=== PATIENT | female | born 1935 | race Caucasian/White ===

== ENCOUNTER 2016-11-21 04:55 | Emergency (ER) | payer OTHER ==
[2016-11-21 05:04] VITALS: RESP 16; TEMP 97.3; O2SAT 96
[2016-11-21] MEDS ORDERED: HYDROCOD/APAP 5/325 PREPACK#6 BTL TAKEHOME ONE (05:56)
[2016-11-21] MEDS ORDERED: CEPHALEXIN 500MG PREPACK#4 BTL TAKEHOME ONE (05:56)
--- NOTE | 2016-11-21 05:56 | EDPHY ---
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 Patient states that for the past 2 days she has been having increase swelling and redness over the pad of her left thumb. States that when they did the I and D that they stitched it closed after removal of a portion of the thorn. Denies any fevers or chills. No pain proximal to the distal phalanx. ROS: 10 point Review of Systems is negative except as noted in the HPI. Social History: [No] smoking Physical Exam: General: Awake, alert, no acute distress Left thumb: There is a stitched incision on her left thumb pad with tenderness and fluctuance and surrounding erythema. The erythema does not cross to the proximal phalanx. She has no pain with flexion extension. There is no tenderness or pain along the flexor or extensor tendon sheath. Skin: No rash - Personal History Current Tetanus/Diphtheria Vaccine: Yes Current Tetanus Diphtheria and Acellular Pertussis (TDAP): Yes - Medical/Surgical History Hx Asthma: No Hx Chronic Respiratory Disease: Yes Hx Diabetes: No Hx Cardiac Disease: Yes Hx Renal Disease: No Hx Cirrhosis: No Hx Alcoholism: No Hx HIV/AIDS: No Hx Splenectomy or Spleen Trauma: No Other PMH: HTN, CROHNS, HIGH CHOLESTEROL, COPD, CHRONIC LOW BACK PAIN, IBS, BRADYCARDIA, GOUT, - Social History Smoking Status: Never smoked Constitutional: Initial Vital Signs Temperature (C) 36.3 C 11/21/16 04:57 Heart Rate 80 11/21/16 04:57 Respiratory Rate 16 11/21/16 04:57 Blood Pressure 150/85 H 11/21/16 04:57 O2 Sat (%) 96 11/21/16 04:57 O2 Delivery Mode Room Air Allergies/Adverse Reactions: penicillin G Allergy (Verified 11/21/16 05:04) Home Medications: Medication Instructions Recorded Allopurinol [Allopurinol 300 MG 300 mg PO DAILY 11/21/16 (RX)] Amlodipine Besylate [Norvasc] 5 mg PO 11/21/16 Cephalexin [Keflex (*)] 500 mg PO Q6H #40 cap 11/21/16 Lisinopril [Zestril 40 mg (*)] 40 mg PO DAILY 11/21/16 Mesalamine [Canasa] 2,000 mg RC 11/21/16 Vitamin B Comp W-C [B 11/21/16 Complex-Vitamin C] Medical Decision Making Procedures: Procedure: Digital nerve block, indication is digit anesthesia for procedure. Patient was prepped with chlorhexidine Skin prep. 0.5% bupivacaine was infiltrated in the medial in lateral aspects for with a dorsal approach at the base of the proximal phalanx with blockage of both dorsal and volar nerves. Total of 1 mL was infiltrated. There were no complications. Procedure was performed by myself. Procedure: Abscess drainage. The patient's abscess was located on the left thumb. I obtained verbal consent from the patient to drain the abscess who was informed about the possibility of bleeding and pain. The abscess was incised with 11 blade scalpel and a moderate amount of purulent drainage was expressed. I irrigated the wound and placed some packing. The patient tolerated the procedure well. The procedure was performed by myself. - Data Points Medications Given: Discontinued Medications Hydrocodone Bitart/Acetaminophen ([place] 5/325mg Prepack#6) 1 btl TAKEHOME EDNOW ONE Stop: 11/21/16 05:57 Last Admin: 11/21/16 06:02 Dose: 1 btl Cephalexin (Keflex 500 Mg Prepack#4) 1 btl TAKEHOME EDNOW ONE PRN Reason: Protocol Stop: 11/21/16 05:57 Last Admin: 11/21/16 06:03 Dose: 1 btl Departure - Departure Disposition: Home, Routine, Self-Care Clinical Impression: Wound infection Condition: Good Instructions: Wound Infection (ED), Abscess (ED) Additional Instructions: Your packing needs to be removed in 2 days. Please take her full course of antibiotics. Return to the emergency department for pain that is spreading of her hand. Pain in the palm of her hand, increasing redness, fevers, chills, or any other concerns. Referrals: [facility] [Other] - As per Instructions Prescriptions: Cephalexin [Keflex (*)] 500 mg PO Q6H #40 cap
[2016-11-21 06:13] VITALS: BP 144/81; PULSE 75
== END 2016-11-21 06:12 | disposition home or self-care (01) ==
PROC: 0H9GXZZ Drainage of Left Hand Skin, External Approach (ICD-10-PCS; principal; 2016-11-21)
DX: L08.9 Local infection of the skin and subcutaneous tissue, unspecified (principal); I10 Essential (primary) hypertension; J44.9 Chronic obstructive pulmonary disease, unspecified

== ENCOUNTER 2016-11-23 15:15 | Emergency (ER) | payer OTHER ==
--- NOTE | 2016-11-23 15:29 | EDPHY ---
H & P Stated Complaint: Wound Recheck Time Seen by Provider: 11/23/16 15:28 - Personal History Current Tetanus/Diphtheria Vaccine: Yes Current Tetanus Diphtheria and Acellular Pertussis (TDAP): Yes - Medical/Surgical History Hx Asthma: No Hx Chronic Respiratory Disease: Yes Hx Diabetes: No Hx Cardiac Disease: Yes Hx Renal Disease: No Hx Cirrhosis: No Hx Alcoholism: No Hx HIV/AIDS: No Hx Splenectomy or Spleen Trauma: No Other PMH: HTN, CROHNS, HIGH CHOLESTEROL, COPD, CHRONIC LOW BACK PAIN, IBS, BRADYCARDIA, GOUT, - Social History Smoking Status: Never smoked Constitutional: Initial Vital Signs Temperature (C) 36.9 C 11/23/16 15:19 Heart Rate 78 11/23/16 15:19 Respiratory Rate 16 11/23/16 15:19 Blood Pressure 167/65 H 11/23/16 15:19 O2 Sat (%) 96 11/23/16 15:19 O2 Delivery Mode Room Air Allergies/Adverse Reactions: penicillin G Allergy (Verified 11/23/16 15:19) Home Medications: Medication Instructions Recorded Allopurinol [Allopurinol 300 MG 300 mg PO DAILY 11/21/16 (RX)] Amlodipine Besylate [Norvasc] 5 mg PO 11/21/16 Cephalexin [Keflex (*)] 500 mg PO Q6H #40 cap 11/21/16 Lisinopril [Zestril 40 mg (*)] 40 mg PO DAILY 11/21/16 Mesalamine [Canasa] 2,000 mg RC 11/21/16 Vitamin B Comp W-C [B 11/21/16 Complex-Vitamin C] Medical Decision Making ED Course/Re-evaluation: CHIEF COMPLAINT: Abscess re-check. HISTORY OF PRESENT ILLNESS: The patient is an 81-year-old female status post abscess drainage 11/21/2016 who presents for a re-check of the wound. She initially had a foreign body penetration in August in the thumb. Her family physician then pulled the piece of wood out and sutured her thumb. She was here 2 days ago and had the suture removed and the abscess drained. She had a drain in place in the thumb on Thursday for an hour but it fell out. She has been on Keflex since. She is still able to move her thumb well. She denies fever, weakness, cough, recent sickness, or other complaints. REVIEW OF SYSTEMS: A 10 point review of systems was performed and is negative with the exception of the elements mentioned in the history of present illness. PHYSICAL EXAM: HR, BP, O2 Sat, RR. Temp noted General Appearance: Alert, well hydrated, appropriate, and non-toxic appearing. Head: Atraumatic without scalp tenderness or obvious injury Eyes: Pupils equal, round, reactive to light and accommodation, EOMI, no trauma , no injection. Ears: Clear bilaterally, no perforation, normal landmarks Nose: Atraumatic, no rhinorrhea, clear. Throat: There is no erythema or exudates, no lesions, normal tonsils, mucus membranes moist. Neck: Supple, 2+ carotid upstroke, nontender, no lymphadenopathy. Respiratory: No retractions, no distress, no wheezes, and no accessory muscle use. Lungs are clear to auscultation bilaterally. Cardiovascular: Regular rate and rhythm, no murmurs, rubs, or gallops. Bilateral carotid, radial, dorsalis pedis, and posterior tibial pulses intact. Good capillary refill all extremities. Gastrointestinal: Abdomen is soft, nontender, non-distended, no masses, no rebound, no guarding, no peritoneal signs. Musculoskeletal: Normal active ROM of all extremities, atraumatic. Neurological: Alert, appropriate, and interactive. The patient has normal DTRs and non-focal cranial nerves, motor, sensory, and cerebellar exam. Skin: No rashes, good turgor, no nodules on palpation. Healing I&D incision on left thumb. There is an area of surrounding erythema. The wound is clean, dry, and intact. There is no red streaking. Past medical history: Hypertension, Crohn's disease, hypercholesterolemia, COPD , CHRONIC LOW BACK PAIN, IBS,BRADYCARDIA, GOUT, Past surgical history: Family history: N/A. 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 DIFFERENTIAL DIAGNOSIS: The differential diagnosis for the patient includes, but is not limited to: cellulitis, abscess, felon, paronychia. MEDICAL DECISION MAKIN-year-old female presents for abscess recheck on her left thumb. She had it drained two days ago here and has been on Keflex. On exam there is no red streaking up her hand. She has full range of motion in all her fingers. She is afebrile. I think this represents a felon of her left thumb. I will discontinue her use of Keflex and start her on Doxycycline to cover MRSA. She is comfortable with this plan. Departure - Departure Disposition: Home, Routine, Self-Care Clinical Impression: [place] of finger Condition: Good Instructions: Abscess (ED) Additional Instructions: Discontinue use of your Keflex. Take Doxycycline as prescribed. Follow up with your primary care provider for reevaluation. Return for any serious worsening of condition. Referrals: [facility] [Primary Care Provider] - As per Instructions Report Scribed for: Pawan Barbosa Report Scribed by: Hernán Montenegro Date of Report: 11/23/16 Time of Report: 15:38
[2016-11-23 15:48] VITALS: BP 155/67; PULSE 82; RESP 18; TEMP 98.6; O2SAT 95
== END 2016-11-23 15:52 | disposition home or self-care (01) ==
DX: L03.012 Cellulitis of left finger (principal); I10 Essential (primary) hypertension; J44.9 Chronic obstructive pulmonary disease, unspecified
CPT/HCPCS: G0463

== ENCOUNTER → 2018-04-29 | Outpatient (CLI) | payer OTHER ==
[~2018-04-29] MED LIST: IOPAMIDOL (ISOVUE 370) 100 ML BTL IV ONE
== END ==
LOC: FIMAGING 14:43
PROVIDERS: ATTEND Internal Medicine Pulmonary Disease
DX: R06.09 Other forms of dyspnea (principal)
CPT/HCPCS: 71275; Q9967; 82565-PO

== ENCOUNTER → 2018-05-11 | Outpatient (CLI) | payer OTHER ==
[~2018-05-11] MED LIST changes: -IOPAMIDOL (ISOVUE 370) 100 ML BTL IV ONE; +IOPAMIDOL (ISOVUE-300) 100 ML BTL ONE
== END ==
LOC: FIMAGING 09:56
PROVIDERS: ATTEND Internal Medicine Gastroenterology
DX: R93.3 Abnormal findings on diagnostic imaging of other parts of digestive tract (principal)
CPT/HCPCS: 74177; Q9967